=== PATIENT | female | born 1930 | race Two or more races ===

== ENCOUNTER 2017-02-24 06:54 | Outpatient (CLI) | payer MEDICARE, OTHER ==
--- NOTE | 2017-02-24 10:14 | Diagnostic Imaging Report ---
Indication: Osteoporosis Technique: 10 mm thick slices obtained through the L2, L3, and L4 vertebral bodies. Cortical and trabecular regions of interest were drawn. The average trabecular bone mineral density was calculated. Total dose length product 31 mGycm. CTDIvol(s) 3x3 mGy. Dose reduction achieved using automated exposure control Comparison: 07/11/2012 Findings: The calculated bone mineral density is 69.3 mg ca-EAGLE/ml. The T score is -3.26. This indicates the patient's bone mineral density is 3.26 standard deviations below that of normal 20-year-old females. The Z score is not calculable due to patient's age. Note that previous bone mineral density was 72.5, previous T score values 3.14 Impression: Patient's bone mineral density is greater than 25% below that of normal 20-year-old females. Patient is considered osteoporotic by WHO criteria. Insufficiency fracture risk is high. Patient should be considered for therapy, if not already initiated, with followup scan in one year to monitor response to therapy Note slight progression of osteoporotic change since the exam of [address] scanner at [facility] is accredited by the [employer] and the scans are performed using protocols designed to limit radiation exposure to as low as reasonably achievable to attain images of sufficient resolution adequate for diagnostic evaluation.
== END 2017-02-24 08:54 | disposition home or self-care (01) ==
LOC: CAT 06:54
DX: M81.0 Age-related osteoporosis without current pathological fracture (principal)
CPT/HCPCS: 77078

== ENCOUNTER 2017-03-01 07:32 | Outpatient (CLI) | payer MEDICARE, OTHER ==
--- NOTE | 2017-03-02 13:48 | Diagnostic Imaging Report ---
Indication: SCREEN Technique: Bilateral Craniocaudal and mediolateral oblique views were obtained. Comparison: 07/11/2012 Findings: The breasts demonstrate scattered fibroglandular densities. Right breast is slightly smaller, consistent with prior lumpectomy.. Right upper-outer parenchymal critical asymmetry is unchanged.. There are benign calcifications bilaterally. No dominant masses nor suspicious clustered microcalcifications. Dimpling of the nipple is stable, presumably related to prior surgery. No axillary adenopathy. No significant interim change. Impression: No mammographic evidence of malignancy. Routine annual rescreening recommended. BI-RADS category 2-benign. Breast density BI-RADS type B.
== END 2017-03-01 09:32 | disposition home or self-care (01) ==
LOC: MAMMO 07:32
DX: Z12.31 Encounter for screening mammogram for malignant neoplasm of breast (principal); M81.0 Age-related osteoporosis without current pathological fracture
CPT/HCPCS: 77067